=== PATIENT | male | born 1965 | race Caucasian/White ===

== ENCOUNTER 2016-07-14 12:16 | Emergency (ER) | payer OTHER ==
[~2016-07-14] VITALS: Ht 165.1 cm; Wt 66.1 kg
[~2016-07-14 12:16] MED LIST: CO Q-10100 MG PO; COREG CR40 MG PO; FENOFIBRATE145 M1 PO; FISH OIL 1,2001 EAC3 PO; LITE COAT ASPI325 M1 PO; NIASPAN,SLO-NI500 MG PO; PAXIL30 MG PO; PLAVIX75 MG PO; PRAVASTATIN SOD80 MG PO
[2016-07-14 13:45] LABS: HEMATOCRIT 44.2 % (38.0-50.0); MCH 32.7 PG (29.0-34.0); MCHC 36.2 G/DL (30.0-36.0); MCV 90.4 FL (86-99); MEAN PLAT.VOLUME 8.8 uM^3 (9.0-12.4); PLATELET COUNT 240 K/uL (156-360); RBC DIS.WIDTH-CV 13.6 % (11.8-14.6); RBC DIS.WIDTH-SD 44.3 % (39-53); RED BLOOD COUNT 4.89 M/uL (4.00-5.50); WHITE BLOOD COUNT 6.1 K/uL (4.1-10.2)
[2016-07-14] MEDS ORDERED: COREG CR10 MG PO (14:01)
[2016-07-14] MEDS ORDERED: CRESTOR40 MG PO (14:01)
[2016-07-14] MEDS ORDERED: LO-DOSE ASPIRIN81 M2 PO (14:01)
[2016-07-14 14:11] LABS: CHLORIDE 101 mEq/L (99-109); POTASSIUM 4.2 mEq/L (3.7-5.4); SODIUM 137 mEq/L (136-147)
[2016-07-14 14:14] LABS: GLUCOSE 94 mg/dL (70-99)
[2016-07-14 14:15] LABS: ANION GAP 9 MEQ/L (2-14)
[2016-07-14 14:16] LABS: TOTAL BILIRUBIN 0.8 mg/dL (0.0-1.0)
[2016-07-14 14:17] LABS: ALKALINE PHOSPHATASE 73 IU/L (3-129); GFR ESTIMATE (CALCULATED) > 59 mL/min/
[2016-07-14 14:19] LABS: UREA NITROGEN (BUN) 13 mg/dL (9-23)
[2016-07-14 14:21] LABS: LIPASE 42 U/L (1.0-51.0)
[2016-07-14] MEDS ORDERED: PERCOCET 5/31 TABLET PO (17:44)
[2016-07-14] MEDS ORDERED: MOTRIN600 MG PO (17:44)
[2016-07-14 18:12] LABS: ADD MIUA? NO; BILIRUBIN NEGATIVE; BLOOD NEGATIVE; COLOR YELLOW ((YELLOW)); GLUCOSE (STRIP) NEGATIVE; KETONES NEGATIVE; LEUKOCYTES NEGATIVE; NITRITE NEGATIVE; PROTEIN (STRIP) NEGATIVE; SPECIFIC GRAVITY 1.041 (1.000-1.030); UCUL ADDED? NO; UROBILINOGEN 0.2 MG/DL (0.2-1.0)
[2016-07-14 18:29] VITALS: BP 105/68
== END 2016-07-14 18:31 | disposition home or self-care (01) ==
LOC: EME 12:16
DX: K40.90 Unilateral inguinal hernia, without obstruction or gangrene, not specified as recurrent (principal); I10 Essential (primary) hypertension; I25.2 Old myocardial infarction; F17.200 Nicotine dependence, unspecified, uncomplicated
CPT/HCPCS: 74177; 80053; 81003; 83690; 85027; 99281; 99285; J1170; J1885; J2405; J3360; J7040

== ENCOUNTER 2016-08-18 05:27 | Day surgery (SDC) | payer OTHER ==
[~2016-08-18] VITALS: Ht 165.1 cm; Wt 67.1 kg
[~2016-08-18 05:27] MED LIST changes: +ADVIL200 MG PO; +COREG CR10 MG PO; +CRESTOR40 MG PO; +LO-DOSE ASPIRIN81 M2 PO; +MOTRIN600 MG PO; +PAXIL40 MG PO; +PERCOCET 5/31 TABLET PO
[2016-08-18 06:21] VITALS: BP 123/76
[2016-08-18] MEDS ORDERED: PERCOCET 5/31 TABLET PO (08:31)
[2016-08-18 09:20] VITALS: BP 134/78
[2016-08-18 10:18] VITALS: BP 132/78
== END 2016-08-18 10:30 | disposition home or self-care (01) ==
LOC: SDC 05:27 → EDSTATUS 08:48 → 2SOUTH 08:48 → SDC 08:50
PROC: 0YQ50ZZ Repair Right Inguinal Region, Open Approach (ICD-10-PCS; principal; 2016-08-18)
DX: K40.90 Unilateral inguinal hernia, without obstruction or gangrene, not specified as recurrent (principal); I10 Essential (primary) hypertension; E78.5 Hyperlipidemia, unspecified; I25.10 Atherosclerotic heart disease of native coronary artery without angina pectoris; Z95.5 Presence of coronary angioplasty implant and graft
CPT/HCPCS: C1781; J0690; J1100; J2250; J2405; J3010

== ENCOUNTER 2017-12-29 20:12 | Inpatient (IN) | payer OTHER ==
[~2017-12-29] VITALS: Ht 165.1 cm; Wt 73.3 kg
[~2017-12-29 20:12] MED LIST changes: +BRILINTA90 MG PO; -PAXIL40 MG PO; -PLAVIX75 MG PO
[2017-12-29 20:28] LABS: BASOPHIL COUNT 0.1 K/uL (0-0.1); EOSINOPHIL (%) 0.9 % (0-5); EOSINOPHIL COUNT 0.1 K/uL (0-0.3); HEMOGLOBIN 15.2 G/DL (12.5-16.6); IMMATURE GRANULOCYTE (%) 0.4 % (0.0-0.7); MCH 32.8 PG (29.0-34.0); MCHC 35.3 G/DL (30.0-36.0); MCV 92.7 FL (86-99); MONOCYTE (%) 10.1 % (3-12); MONOCYTE COUNT 0.8 K/uL (0-0.8); NEUTROPHIL (%) 61.6 % (45-76); NEUTROPHIL COUNT 4.8 K/uL (1.8-6.4); PLATELET COUNT 247 K/uL (156-360); RBC DIS.WIDTH-CV 13.1 % (11.8-14.6); RBC DIS.WIDTH-SD 44.7 % (39-53); RED BLOOD COUNT 4.64 M/uL (4.00-5.50); WHITE BLOOD COUNT 7.7 K/uL (4.1-10.2)
[2017-12-29 20:36] LABS: PTT 30.9 SEC (25-37)
[2017-12-29 20:38] LABS: CHLORIDE 104 mEq/L (99-109); POTASSIUM 3.9 mEq/L (3.7-5.4); SODIUM 137 mEq/L (136-147)
[2017-12-29 20:40] LABS: GLUCOSE 142 mg/dL (70-99)
[2017-12-29 20:44] LABS: GFR ESTIMATE (CALCULATED) > 59 mL/min/ (58.99-99999)
[2017-12-29 20:45] LABS: UREA NITROGEN (BUN) 14 mg/dL (9-23)
[2017-12-29 20:50] LABS: TROP-I INTERPRETATION NEGATIVE; TROPONIN-I < 0.01 ng/mL (0.0-0.30)
[2017-12-29 22:30] VITALS: BP 110/72
[2017-12-29 23:01] VITALS: BP 103/88
[2017-12-30] VITALS (16 sets, daily range): BP systolic 101–138; BP diastolic 65–88
[2017-12-30 05:46] LABS: TROP-I INTERPRETATION POSITIVE; TROPONIN-I 13.38 ng/mL (0.0-0.30)
[2017-12-30] MEDS ORDERED: FLEXERIL10 MG PO (11:24)
[2017-12-30] MEDS ORDERED: CLONAZEPAM0.5 MG PO (11:25)
[2017-12-30 12:35] LABS: TROP-I INTERPRETATION POSITIVE; TROPONIN-I 9.01 ng/mL (0.0-0.30)
[2017-12-30 18:24] LABS: TROP-I INTERPRETATION POSITIVE; TROPONIN-I 5.55 ng/mL (0.0-0.30)
[2017-12-31 00:22] VITALS: BP 135/77
[2017-12-31 04:18] VITALS: BP 128/85
[2017-12-31 05:24] LABS: CHLORIDE 101 MEQ/L (99-109); CREATININE 0.9 MG/DL (0.6-1.3); GFR ESTIMATE (CALCULATED) > 59 mL/min/ (58.99-99999); SODIUM 136 MEQ/L (136-147); UREA NITROGEN (BUN) 10 mg/dL (9-23)
[2017-12-31 05:25] LABS: GLUCOSE 94 mg/dL (70-99)
[2017-12-31 07:27] VITALS: BP 125/78
[2017-12-31] MEDS ORDERED: BRILINTA90 MG PO (10:58)
[2017-12-31] MEDS ORDERED: LOSARTAN POTASS25 MG PO (10:58)
[2017-12-31] MEDS ORDERED: NITROSTAT0.4 MG SL (10:58)
[2017-12-31] MEDS ORDERED: NICODERM CQ1 EAC2 TD (11:02)
== END 2017-12-31 12:17 | disposition home or self-care (01) | DRG 247 ==
LOC: EME 20:12 → ENRESERV 20:24 → CATH 20:36 → ENRESERV 21:04 → 4WEST 22:38 → ENRESERV 12-30 16:34 → 4EAST 12-30 17:42
PROVIDERS: Emergency Medicine; Internal Medicine Cardiovascular Disease
DX: I21.19 ST elevation (STEMI) myocardial infarction involving other coronary artery of inferior wall (principal); I25.10 Atherosclerotic heart disease of native coronary artery without angina pectoris; T82.855A Stenosis of coronary artery stent, initial encounter; E78.5 Hyperlipidemia, unspecified; I25.2 Old myocardial infarction; F17.210 Nicotine dependence, cigarettes, uncomplicated; Z95.5 Presence of coronary angioplasty implant and graft; Z79.02 Long term (current) use of antithrombotics/antiplatelets; Z79.82 Long term (current) use of aspirin; Z71.6 Tobacco abuse counseling
CPT/HCPCS: 71045; 80048; 84484; 85025; 85347; 85610; 85730; 87641; 93005; 99281; 99285; C1725; C1769; C1874; C1887; J1644; J2250; J3010; J3246; J7030